=== PATIENT | female | born 1970 | race Caucasian/White ===

== ENCOUNTER → 2018-03-10 | Outpatient (CLI) | payer BC ==
--- NOTE | 2018-03-10 10:12 | FL ---
EXAMINATION TYPE: FL esophagus cervic/pharynx DATE OF EXAM: 03/10/2018 HISTORY: Heartburn COMPARISON: NONE TECHNIQUE: A double contrast esophagram is performed utilizing air and barium. FINDINGS: The esophagus shows normal motility and emptying into the stomach. No evidence of hiatal hernia or s tricture noted. No significant gastroesophageal reflux was seen during real time performance of this study. Fluoroscopy time: Not recorded Images: 17 IMPRESSION: 1. No gastroesophageal reflux elicited during this exam. 2. Esophagram appears normal.
== END | disposition home or self-care (01) ==
LOC: RADFLWHC 08:22
PROVIDERS: ATTEND Family Medicine
DX: R12 Heartburn (principal)
CPT/HCPCS: 74210

== ENCOUNTER → 2020-02-03 | Outpatient (CLI) | payer BC ==
--- NOTE | 2020-02-16 20:35 | HM ---
HOLTER MONITOR REPORT DATE OF STUDY: 02/03/2020 The patient was monitored for 24 hours. The baseline rhythm appeared to be sinus with a minimum heart rate of 63 beats per minute, max heart rate 166 beats per minute and average heart rate of 92 beats per minute. Ventricular ectopic events were not seen. Supraventricular ectopic events were not seen as well. No evidence of sinus pause or sinus arrest. The patient reported no symptoms. CONCLUSION: 1. Sinus rhythm as a baseline mechanism. 2. No evidence of any significant ventricular or supraventricular ectopic events. 3. No evidence of any tachy or bradyarrhythmia. 4. No evidence of sinus pause or sinus arrest. MMODL / IJN: [id number] /
== END | disposition home or self-care (01) ==
LOC: RADECHMAIN 12:12
PROVIDERS: ATTEND Nurse Practitioner Family
DX: R00.0 Tachycardia, unspecified (principal)
CPT/HCPCS: 93225; 93226

== ENCOUNTER → 2020-03-20 | Outpatient (CLI) | payer BC ==
--- NOTE | 2020-03-26 11:59 | MM ---
Reason for exam: screening (asymptomatic). Last mammogram was performed 1 year and 1 month ago. History: Patient is postmenopausal and history of other cancer. Physical Findings: A clinical breast exam by your physician is recommended on an annual basis and results should be correlated with mammographic findings. MG Screening Mammo w CAD Bilateral CC and MLO view(s) were taken. Prior study comparison: February 15, 2019, bilateral MG screening mammo w CAD. April 02, 2015, bilateral MG screening mammo w CAD. The breast tissue is extremely dense which could obscure a lesion on mammography. Asymmetric breast tissue left inferior, stable. There is no discrete abnormality. ASSESSMENT: Negative, BI-RAD 1 RECOMMENDATION: Routine screening mammogram of both breasts in 1 year.
== END | disposition home or self-care (01) ==
LOC: RADMAMWWP 08:03
PROVIDERS: ATTEND Family Medicine
DX: Z12.31 Encounter for screening mammogram for malignant neoplasm of breast (principal)
CPT/HCPCS: 77067

== ENCOUNTER → 2024-04-06 | Outpatient (CLI) | payer MEDICARE ==
--- NOTE | 2024-04-25 18:06 | MM ---
Reason for Exam: Screening (asymptomatic). Last mammogram was performed 4 year(s) and 0 month(s) ago. Patient History: Menarche at age 10. First Full-Term at age 20. Right ovary removed at age 24. Postmenopausal. Patient has history of breast feeding. Other cancer. Paternal cousin had breast cancer at or over age 50. Risk Values: Lakshmi 5 year model risk: 1.1%. NCI Lifetime model risk: 7.4%. Prior Study Comparison: 06/13/2011 Bilateral Screening Mammogram, [facility]. 04/02/2015 Bilateral Screening Mammogram, [facility]. 02/15/2019 Bilateral Screening Mammogram, [facility]. 03/20/2020 Bilateral Screening Mammogram, [facility]. Tissue Density: The breasts are heterogeneously dense, which may obscure small masses. Findings: Analyzed By CAD. Unchanged areas of asymmetric density particularly in the central and medial aspect of the left breast middle to posterior depth. There is no suspicious group of microcalcifications or new suspicious mass in either breast. Overall Assessment: Benign, BI-RAD 2 Management: Screening Mammogram of both breasts in 1 year. . Patient should continue monthly self-breast exams. A clinical breast exam by your physician is recommended on an annual basis. This exam should not preclude additional follow-up of suspicious palpable abnormalities. Note on Lakshmi scores and lifetime risk: 1. A Lakshmi score greater than 3% is considered moderate risk. If this is the case, consider specialist referral to assess eligibility for a risk reducing agent. 2. If overall lifetime risk for the development of breast cancer is 20% or higher, the patient may qualify for future screening with alternating mammogram and breast MRI. Electronically signed and approved by: Andrez Bates M.D. Radiologist
== END | disposition home or self-care (01) ==
LOC: RADMAMWWP 18:35
PROVIDERS: ATTEND Family Medicine
DX: Z12.31 Encounter for screening mammogram for malignant neoplasm of breast (principal); Z78.0 Asymptomatic menopausal state; Z80.3 Family history of malignant neoplasm of breast; Z90.721 Acquired absence of ovaries, unilateral
CPT/HCPCS: 77063; 77067